=== PATIENT | female | born 2000 | race Caucasian/White ===

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

== ENCOUNTER 2023-07-04 12:16 | Inpatient (IN) ==
[2023-07-04 13:22] LABS: Basophils # (auto) 0.03 K/uL (0.00-0.20); Basophils % (auto) 0.4 %; Eosinophils # (auto) 0.03 K/uL (0.00-0.50); Eosinophils % (auto) 0.4 %; Hematocrit (blood only) 25.5 % (37.0-47.0); Hemoglobin 8.2 g/dl (12.0-16.0); Immature Granulocytes # (auto) 0.09 K/uL (0.01-0.20); Immature Granulocytes % (auto) 1.1 %; Lymphocytes # (auto) 1.47 K/uL (1.20-3.40); Lymphocytes % (auto) 17.5 %; Mean Corpuscular Hemoglobin 22.9 pg (25.0-34.0); Mean Corpuscular Hgb Conc 32.2 g/dL (32.0-36.0); Mean Corpuscular Volume 71.2 fL (80.0-100.0); Mean Platelet Volume 9.4 fL (9.4-12.4); Monocytes # (auto) 0.39 K/uL (0.11-0.59); Monocytes % (auto) 4.6 %; Neutrophils # (auto) 6.39 K/uL (1.40-6.50); Platelet Count 290 K/uL (130-400); RDW Coefficient of Variation 15.4 % (11.5-14.5); Red Blood Count 3.58 M/uL (4.20-5.40)
[2023-07-04 13:35] LABS: Albumin Globulin Ratio 0.9 (0.9-2); Albumin Level 3.2 gm/dl (3.4-5.0); BUN Creatinine Ratio 14.3 (10-20); Bilirubin,Total 0.5 mg/dl (0.2-1.0); Calcium 8.8 mg/dl (8.6-10.3); Creatinine Clr Calc Pharmacy 108.4 ml/min; Est GFR (African American) 113.5 ml/min; Globulin 3.5 gm/dl (2.5-4.0); Potassium 3.7 mmol/L (3.5-5.1); Total Protein 6.7 gm/dl (6.0-8.3)
[2023-07-04] MEDS ORDERED: OXYTOCIN 30 UNITS/NSS 30 UNITS/500 ML BAG IV PRN ×3 (13:41→16:49)
[2023-07-04] MEDS ORDERED: LIDOCAINE 1% LOCAL 20 ML VIAL INFIL PRN (13:41)
[2023-07-04 13:48] LABS: Amphetamines+Metham, Urine Pos (Neg); Barbiturates, Urine Neg (Neg); Benzodiazepine, Urine Neg (Neg); Cocaine, Urine Neg (Neg); MDMA (Ecstacy), Urine Pos (Neg); Marijuana, Urine Pos (Neg); Methadone, Urine Neg (Neg); Opiate, Urine Neg (Neg); Phencyclidine, Urine Neg (Neg)
[2023-07-04] MEDS: LACTATED RINGER'S 1,000 ML IV PRN ×2 (13:49→14:50)
--- NOTE | 2023-07-04 13:51 | History & Physical Report ---
Date of Service July 04, 2023 Assessment & Plan (1) 38 weeks gestation of : Plan: Admit, routine labs Start oxytocin for augmentation Epidural if patient request Anticipate spontaneous vaginal delivery (2) Limited care in third trimester: Plan: Patient had transportation issues this , is aware that CYS will be informed (3) Rh negative status during in third trimester: Plan: Did not get RhoGAM this Plan to give if indicated (4) Marijuana use during : Plan: States she has a medical card, is aware that urine tox was obtained Will is aware that case management and CYS will be informed (5) Asthma, moderate persistent: Plan: Will order inhaler if patient is in need of 1 History of Present Illness Chief Complaint: LOF at 1AM Primary Care Provider: NO PCP Patient is a 23-year-old -0-0-1 at 38 weeks and 5 days dated by 7-week ultrasound, who presents to labor and delivery for spontaneous rupture of membranes at approximately 1 AM. Notes ongoing discharge. Now having more regular contractions. Joined in the room with a friend and father of the baby. Patient was agreeable to have him stepped out of the room for the remainder of the history taking and exam. Patient only had 1 visit this . Patient states she was planning for home , and had changed her mind approximately 1 month ago. She denies any history of abuse, feels safe at home, denies any sex trafficking or concerns for this . Denies any headache, blurry vision, right upper quadrant or epigastric pain. Otherwise feeling well Patient has not had a GBS, RhoGAM in or 1 hour glucose test. Initial OB labs were all normal GBS was negative in 2018 Allergies Allergy/AdvReac Type Severity Reaction Status Date / Time amoxicillin Allergy Severe ANAPHYLAXIS Verified 07/04/23 12:40 Bactrim Allergy Severe ANAPHYLAXIS Verified 12/10/17 01:47 sulfamethoxazole [Bactrim] Allergy Severe ANAPHYLAXIS Verified 07/04/23 12:40 trimethoprim [Bactrim] Allergy Severe ANAPHYLAXIS Verified 07/04/23 12:40 vancomycin Allergy Severe ANAPHYLAXIS Verified 07/04/23 12:40 Home Medications Medication Instructions Recorded Confirmed Type albuterol sulfate 90 mcg/actuation 1 inh inhalation QID PRN Shortness 03/11/21 07/04/23 History aerosol inhaler Of Breath ferrous sulfate 325 mg (65 mg 1 mg PO DAILY 07/04/23 07/04/23 History iron) tablet vits no.124-ferrous fum 1 tab PO DAILY 07/04/23 07/04/23 History 27 mg iron-folic acid 800 mcg tablet ( Vitamin) Patient History Medical History Polyhydramnios depression Seasonal allergies Family History Other Family history non-contributory Social History Smoking Status: Current every day smoker Tobacco Type: Cigarettes Cigarettes Per Day: 2; Hx Alcohol Use: No Hx Substance Use: No Preferred Language: Arabic Communication Ability: Effective 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 Denies any history of HSV. Notes history of seropositive HSV 1 and epic records Review of Systems All systems reviewed & are unremarkable except as noted in HPI & below Physical Exam Constitutional: WD/WN, vitals as above Respiratory: normal respiratory effort, lungs clear to auscultation Cardiovascular: RRR, no murmur, no edema Gastrointestinal (Abdomen): normal bowel sounds, soft, nontender, no hepatosplenomegaly Gravid, EFW 3500 Genitourinary: Sterile speculum exam: No lesions seen Vagina: Small amount of scant thin meconium, positive Valsalva, positive nitrazine Gonorrhea and Chlamydia swab obtained GBS obtained Cervix: 4/80/-2 Cephalic presentation Results & Data Vital Signs (Past 12 Hours) Vital Signs Temp Pulse Resp BP 07/04/23 12:46 36.8 C 18 07/04/23 12:23 73 120/67 Monitoring External Monitor heart tracing: Baseline 125-130, moderate variability, positive accelerations no decelerations, category 1 tracing Tocodynamometer Irregular contractions (5) Asthma, moderate persistent Asthma complication type: uncomplicated Qualified Code(s): J45.40 - Moderate persistent asthma, uncomplicated
[2023-07-04] MEDS ORDERED: fentaNYL citrate PF 100 MCG/2 ML VIAL ONE (13:57)
[2023-07-04] MEDS ORDERED: fentANYL 2 MCG/ML BUPIVacaine 0.125%-NSS 100ML BAG ONE (13:57)
[2023-07-04] MEDS ORDERED: BUPIVACAINE 0.25% PF 30 ML VIAL ONE (13:57)
[2023-07-04] MEDS ORDERED: ePHEDrine sulfate 50 MG/ML AMP ONE (13:57)
[2023-07-04] MEDS ORDERED: LIDOCAINE 2%/EPINEPHRINE 1:200,000 20 ML PF ONE (13:57)
[2023-07-04] MEDS ORDERED: SODIUM CHLORIDE 0.9% PF INJ 10 ML VIAL ONE (13:57)
--- NOTE | 2023-07-04 14:20 | Anesthesiology Consultation ---
Date of Service July 04, 2023 Assessment & Plan Chart Review Chart Review: Acceptable Risk for Labor Epidural Consults Requested none History Height/Weight Height: 5 ft 3 in Weight: 86.183 kg Allergies Allergy/AdvReac Type Severity Reaction Status Date / Time amoxicillin Allergy Severe ANAPHYLAXIS Verified 07/04/23 12:40 Bactrim Allergy Severe ANAPHYLAXIS Verified 12/10/17 01:47 sulfamethoxazole [Bactrim] Allergy Severe ANAPHYLAXIS Verified 07/04/23 12:40 trimethoprim [Bactrim] Allergy Severe ANAPHYLAXIS Verified 07/04/23 12:40 vancomycin Allergy Severe ANAPHYLAXIS Verified 07/04/23 12:40 Medications Home Medications Medication Instructions Recorded Confirmed Last Taken albuterol sulfate 90 mcg/actuation 1 inh inhalation QID PRN Shortness 03/11/21 07/04/23 Unknown aerosol inhaler Of Breath ferrous sulfate 325 mg (65 mg 1 mg PO DAILY 07/04/23 07/04/23 07/03/23 iron) tablet vits no.124-ferrous fum 1 tab PO DAILY 07/04/23 07/04/23 07/03/23 27 mg iron-folic acid 800 mcg tablet ( Vitamin) Active Medications Generic Name Dose Route Start Last Admin Trade Name Freq PRN Reason Stop Dose Admin Lactated Ringer's 1,000 mls @ 125 mls/hr 07/04/23 13:41 07/04/23 13:49 Lr IV 07/06/23 13:40 999 mls/hr .Q8H PRN Administration L&D Protocol Protocol Past Medical History Medical History Polyhydramnios depression Seasonal allergies Past Family History Family History Other Family history non-contributory Social History Smoking Status: Current every day smoker Smoking cigarettes per day: 2 Hx Alcohol Use: No Hx Substance Use: No substance use type: marijuana Physical Exam Vital Signs Last Vital Signs Temp 36.8 C 07/04/23 12:46 Pulse 83 07/04/23 14:15 Resp 18 07/04/23 12:46 BP 123/88 07/04/23 14:14 Pulse Ox 100 07/04/23 14:15 Constitutional WD/WN, vitals as above Respiratory normal respiratory effort, lungs clear to auscultation Cardiovascular RRR, no murmur, no edema Gastrointestinal (Abdomen) normal bowel sounds, soft, nontender, no hepatosplenomegaly Testing Laboratory Results 07/04/23 12:49 07/04/23 12:49 Blood Type A Negative 07/04/23 12:49 Antibody Screen NEGATIVE 07/04/23 12:49
[2023-07-04] MEDS ORDERED: fentaNYL citrate PF 100 MCG/2 ML VIAL EPI STA (14:23)
[2023-07-04] MEDS ORDERED: NALBUPHINE HCL 5 MG in SYRINGE 0 ML IV PRN (14:23)
[2023-07-04] MEDS ORDERED: diphenhydrAMINE 50 MG/ML VIAL IV PRN (14:23)
[2023-07-04] MEDS ORDERED: fentaNYL citrate PF 100 MCG/2 ML VIAL EPI PRN (14:23)
[2023-07-04] MEDS ORDERED: SODIUM CHLORIDE 0.9% PF INJ 10 ML VIAL EPI STA (14:23)
[2023-07-04] MEDS ORDERED: NALOXONE HCL 0.4 MG/1 ML VIAL/CARP IV PRN (14:23)
[2023-07-04] MEDS ORDERED: ePHEDrine sulfate 50 MG/ML AMP IV PRN (14:23)
[2023-07-04] MEDS ORDERED: fentANYL 2 MCG/ML BUPIVacaine 0.125%-NSS 100ML BAG EPI PRN (14:23)
[2023-07-04] MEDS ORDERED: SODIUM CHLORIDE 0.9% PF INJ 10 ML VIAL EPI PRN (14:23)
[2023-07-04] MEDS ORDERED: BUPIVACAINE 0.25% PF 30 ML VIAL EPI PRN (14:23)
[2023-07-04] MEDS ORDERED: LIDOCAINE 2% MPF LOCAL 5 ML VIAL EPI PRN (14:23)
[2023-07-04] MEDS ORDERED: ROPIVACAINE 0.5% PF 5 MG/ML 20 ML VIAL EPI PRN (14:23)
[2023-07-04] MEDS ORDERED: NALOXONE HCL 1 MG in SODIUM CHLORIDE 0.9% 1,000 ML IV PRN (14:23)
[2023-07-04] MEDS ORDERED: BUPIVACAINE 0.25% PF 30 ML VIAL EPI STA (14:23)
[2023-07-04] MEDS ORDERED: LIDOCAINE 2%/EPINEPHRINE 1:200,000 20 ML PF EPI STA (14:23)
[2023-07-04] MEDS ORDERED: SODIUM CHLORIDE 0.9% 250 ML IV PRN (15:50)
[2023-07-04] MEDS ORDERED: bisacodyL 10 MG SUPP PR PRN (16:49)
[2023-07-04] MEDS ORDERED: DIPHTHER/TETAN/PERTUS Vaccine (Tdap, Adol/Adult) 0.5mL IM ONE (16:49)
[2023-07-04] MEDS ORDERED: BENZOCAINE 20% SPRY 85 APPLN/85 GM CAN EXT PRN (16:49)
[2023-07-04] MEDS ORDERED: HYDROCORTISONE ACETATE 25 MG SUPP PR PRN (16:49)
[2023-07-04] MEDS ORDERED: ACETAMINOPHEN 325 MG TAB PO PRN (16:49)
--- NOTE | 2023-07-04 16:54 | Delivery Summary ---
Vaginal Delivery Summary Date of Service July 04, 2023 Vaginal Delivery Summary Delivery Note Labor Course: Patient noted to be 4 cm on admission and reicved epidural. Progressed to 6cm, then 9 cm and complete without augmentation. Noted +UDS for meth, marijuana and ecstasy. Delivery Summary: Patient was placed in the dorsal lithotomy position. She was prepped and draped in the usual sterile fashion. Upon maternal pushing the head was delivered atraumatically followed by the anterior shoulders, posterior shoulders then the remainder of the infants body. Thick meconium noted and nuchal x2 unwrapped after delivery of infant. The was immediately placed on mother's abdomen, dried and stimulated. Delayed cord clamping for 60 seconds was performed. The infants mouth and nose were bulb suctioned by nursing staff. A male was delivered at 1640, weight pending with APGARS of 8 at 1 minute and 9 at 5 minutes. The infant was handed off to the awaiting nursing staff. Cord blood gases were not obtained. The placenta delivered intact with three vessel cord at 1644. Placenta was sent to pathology. Thirty units of Pitocin were added to the IV fluid and allowed to run freely. Uterine massage was performed until uterus was deemed firm. Upon inspection of the perineum, vagina and cervix were intact. Upon re-inspection the patient was hemostatic. Uterus again massaged and found to be firm. Needle and sponge counts were correct. Patient updated at bedside about positive Urine tox screen and need for confirmatory testing Patient was stable and allowed to recover in L&D room. Infant was stable and remained in room with mother in the labor and delivery unit. EBL 300mls
--- NOTE | 2023-07-04 17:07 | Anesthesia Procedure Note ---
Date of Service July 04, 2023 Anesthesia Post Epidural Note Vital Signs Vital Signs: Temp Pulse Resp BP Pulse Ox 36.8 C 69 18 114/65 99 07/04/23 12:46 07/04/23 17:01 07/04/23 12:46 07/04/23 17:01 07/04/23 16:46 Pain Intensity Abdomen: Pain Intensity: 8 Notes Mental Status: alert / awake / arousable and participated in evaluation Nausea / Vomiting: adequately controlled Pain: adequately controlled Airway Patency, RR, SpO2: stable & adequate BP & HR: stable & adequate Hydration State: stable & adequate Neuraxial Anesthesia: was administered and sensory block is resolving Anesthetic Complications: no major complications apparent and Pt Satisfied with anesthetic care Epidural: Removed without complications and With tip intact
--- OUTSIDE RECORDS SUMMARY | 2023-07-04 19:53 | External Medical Summary | Summary of Care ---
Author Name Unknown Organization [facility] Address [address] [place] [address] Phone [phone] Care Team Providers Care Model Maker Plastic Name Role Phone Armida Hernandez MD Primary Care Prov ider Encounter Details Date Type Department Care Team (Late st Contact Info) Description 04/09/2023 Orders Only Outcomes Research Department [address] [place], [place] [id number] Trinity Engle CHRA MyCode Research Other*[id number] Allergies Active Allergy Reactions Criticality Noted Date Comments Amoxicillin 04/10/2017 Sulfamethoxazole-Trimethoprim Edema Other,Hives 08/08/2016 Vancomycin Edema face/lips/tongue High 08/08/2016 documented as of this encounter (statuses as of 04/09/2023) Medications Medication Sig Dispensed Refills Start Date End Date Status Plus 27-1 MG Oral TabletIndications:Enc ounter for supervision of other normal , unspecified trimester Take 1 Tablet by mouth in the morning. 100 Tablet 3 11/30/2022 Active Iron-Vitamin C 65-125 MG Oral Tablet (Vitron C) Take 1 Tablet by mouth in the morning. 90 Tablet 3 12/03/2022 Active documented as of this encounter (statuses as of 04/09/2023) Active Problems Problem Noted Date Diagnosed Date Medical marijuana use 11/30/2022 Overview: Has medical marijuana card Raynaud's disease without gangrene 07/30/2018 Bilateral carpal tunnel syndrome 06/04/2018 Tobacco use disorder 02/19/2018 Rh negative status during 04/24/2017 INFORMATION 04/10/2017 Overview: Patient received flu vaccine. 04/10/2017 Amirah Esparza RN Rhophylac given at today's visit, 04/24/17, kmb Asthma, moderate persistent 01/04/2011 Other allergic rhinitis 04/23/2006 Overview: ICD-10 update of inactive term documented as of this encounter (statuses as of 04/09/2023) Resolved Problems Problem Noted Date Diagnosed Date Resolved Date Depression, 06/04/201807/30 Iron deficiency anemia 03/25/201807/30 Single liveborn, born in [facility], delivered by vaginal delivery 07/12/2017 02/19/2018 Polyhydramnios 07/12/2017 02/19/2018 Hx of chlamydia infection 07/12/2017 Tobacco smoking complicating 07/12/2017 11/30/2022 Overview: Smoking 1-2 cigarettes/day at [facility], down from about 1ppd. First-degree perineal lacera tion during delivery 07/12/2017 02/19/2018 (normal spontaneous vaginal delivery) 07/12/2017 02/19/2018 Antepartum anemia complicating 05/01/2017 02/19/2018 Supervision of normal first 04/10/2017 02/19/2018 Overview: Transfer of care at 27weeks from [facility]. Awaiting outside records 06/05/2017 Tdap Vaccine administered per clinic protocol. Pt given VIS(vaccine information sheet) Noelle Leigh RN Problem Action Taken Date entered Entered by Date resolved Unplanned 1st Offer Nurse [facility] 04/24/17 Antoinette Capellan RN 04/24/17 Nutrition Pt is attending [facility] 04/24/2017 Antoinette Capellan RN 04/24/17 Problem Action Taken Date entered Entered by Date resolved Current needs or questions Patient denies having any current needs or questions 05/15/2017 Vaishnavi Reid RN 05/15/2017 Problem Action Taken Date entered Entered by Date resolved Current needs or questions Patient denies having any current needs or questions 05/29/2017 Vaishnavi Reid RN 05/29/2017 Problem Action Taken Date entered Entered by Date resolved Labor education Reviewed signs and symptoms of labor and danger signs 06/05/2017 Noelle Leigh RN 06/05/2017 Problem Action Taken Date entered Entered by Date resolved Current needs or questions Patient denies having any current needs or questions 06/13/2017 Antoinette Capellan RN 06/13/17 Problem Action Taken Date entered Entered by Date resolved Labor education Reviewed signs and symptoms of labor and danger signs 06/19/2017 Antoinette Capellan RN 06/19/17 Problem Action Taken Date entered Entered by Date resolved Unsure of what to put in her bag discussed 06/26/2017 Vaishnavi Reid RN 06/26/2017 Problem Action Taken Date entered Entered by Date resolved Current needs or questions Patient denies having any current needs or questions 07/03/2017 Antoinette Capellan RN 07/03/17 Problem Action Taken Date entered Entered by Date resolved induction Discussed 07/10/2017 Vaishnavi Reid RN 07/10/2017 Constipation 03/08/2016 02/19/2018 Chlamydia infection 03/07/2016 02/20/20 18 Asthma with severity to be determined 12/08/2009 01/04/2011 Overview: Per Asthma Taxonomy ICD-10 update of inactive term EXTRINSIC ASTHMA, UNSPEC 04/23/2006 documented as of this encounter (statuses as of 04/09/2023) Immunizations Name Administration Dates Next Due HPV Vaccine, 9-Valent 11/04/2017,08/22/2016,01/2016 Meningococcal Conjugate Vacc ine (Menactra/Menveo) 02/23/2016,02/11/2012 SEASONAL INFLUENZA, PF, 6 M & Above, IM , (FLULAVAL or FLUZONE) 02/19/2018,04/10/2017 Seasonal Influenza Intranasal 04/23/2006 TDAP (age 10 and older)(Boostrix) 06/05/2017, Varicella Vaccine (Chicken Pox) 08/31/2008 documented as of this encounter Social History Tobacco Use Types Packs/Day Years Used Date Smoking Tobacco: Every Day Cigarettes 0.3 3 Smokeless Tobacco: Never Comments:1-2 cigarettes/day Alcohol Use Standard Drinks/Week Comments Not Currently 0 (1 standard drink = 0.6 oz pur e alcohol) Hunger Vital Sign Answer Date Recorded Within the past 12 months, y ou worried that your food would run out before you got the money to buy more. Never true 11/18/19 23 Within the past 12 months, t he food you bought just didn't last and you didn't have money to get more. Never true 11/17/2022 [place] Depression Scale Answer Date Recorded [place] Depression Scale Total Never 11/30/2022 The thought of harming myself has occurred to me . 0 11/30/2022 Sex and Gender Information Value Date Recorded Sex Assigned at Female 11/17/2022 3:29 PM EDT Gender Identity Female 11/17/2022 3:29 PM EDT Sexual Orientation Straight 11/17/2022 3: 29 PM EDT Job Start Date Occupation Industry Not on file Not on file Not on file documented as of this encounter Plan of Treatment Scheduled Orders Name Type Priority Associated Diagnoses Orde r Schedule MYCODE INITIAL ADULT Lab Routine MyCode Research Other*[id number] Expected: 04/09/2023 (Approximate), Expires: 04/28/2024 Health Maintenance Due Date Last Done Comments DISCUSS TOBACCO CESSATION (R EFER TO SMARTSET #[id number]) 2000 COVID-19 Vaccine (#1) 2000 Pneumococcal Vaccine: Pediat rics (0 to 5 Years) and At-Risk Patients (6 to 64 Years) (1 - PCV) 01/18/2006 Influenza Vaccine (FLU shot) (#1) 2023 02/19/2018, 02/19/2018, 04/10/2017, Additional history exists Depression Screening 02/26/2023 02/26/2022 Gonorrhea / Chlamydia Screen 12/01/2023, 02/26/2022, 07/22/2019, Additional history exists Pap Smear 02/26/2025 02/26/2022 DTaP,Tdap,and Td Vaccines (8 - Td or Tdap) 06/05/2027 06/05/2017, 02/11/2012, 07/04/2004, Additional history exists Hepatitis B Completed 08/04/2001, 06/2000, 2000 MENINGOCOCCAL (MENACTRA/MENVEO) Completed , 02/11/2012 GARDASIL-HPV IMMUNIZATION SERIES Completed 11/04/2017, 08/22/2016, 02/23/2016 documented as of this encounter Medical Devices Not on filedocumented as of this encounter Visit Diagnoses Diagnosis MyCode Research Other*[id number] documented in this encounter Advance Directives Latest Code Status on File Code Status Date Activated Date Inactivated Comments Full Code 07/11/2017 12:59 AM 07/13/2017 8:16 PM This order reflects the patients wishes and were consensually agreed upon. Care Teams Model Maker Plastic Relationship Specialty Start Date End Date Armida Hernandez MD [address] [place] [address] [place] [id number] PCP - General Family Medicine 07/23/18 documented as of this encounter
--- OUTSIDE RECORDS SUMMARY | 2023-07-04 19:53 | External Medical Summary | Summary of Care ---
Author Name Unknown Organization [facility] Address [address] [place] [address] Phone [phone] Care Team Providers Care Architectural Wood Model Maker Name Role Phone Armida Hernandez MD Primary Care Prov ider Reason for Visit * Reason Onset Date Comments No Show 01/01/2023 Encounter Details Date Type Department Care Team Description 01/01/2023 [facility] [address] [facility] [place] [address] Nayana Salomon CRNP [address] [facility] [place] [address] No Show Allergies Active Allergy Reactions Severity Noted Date Comments Amoxicillin 04/10/2017 Sulfamethoxazole-Trimethoprim Edema Other,Hives 08/08/2016 Vancomycin Edema face/lips/tongue High 08/08/2016 documented as of this encounter (statuses as of 01/31/2023) Medications Medication Sig Dispensed Refills Start Date [...] as of this encounter (statuses as of 01/31/2023) Active Problems Problem Noted Date Medical marijuana use 11/30/2022 Overview: Has medical marijuana card Cherylud's disease without gangrene 07/30 Bilateral carpal tunnel syndrome 018 Tobacco use disorder 02/19/2018 Rh negative status during 01/2017 INFORMATION 04/10/2017 Overview: Patient received flu vaccine. 04/10/2017 Amirah Esparza RN Rhophylac given at today's visit, 04/24/17, kmb Asthma, moderate persistent 01/04/2011 Other allergic rhinitis 04/23/2006 Overview: ICD-10 update of inactive term Estimated Date of Delivery Comme nts Yes 07/15/2023 Based on last me nstrual period of 10/08/2022 (Approximate) documented as of this encounter (statuses as of 01/31/2023) Resolved Problems Problem Noted Date Resolved Date Depression, 06/04/2018 9 Iron deficiency anemia 03/25/2018 9 Single liveborn, born in [facility], delivered by vaginal delivery 07/12/2017 02/19/2018 Polyhydramnios 07/12/2017 02/19/2018 Hx of chlamydia infection 07/12/20172017 Tobacco smoking complicating 8 11/30/2022 Overview: Smoking 1-2 cigarettes/day at NOB, down from about 1ppd. First-degree perineal laceration during delivery 07/12/2017 02/19/2018 (normal spontaneous vaginal delivery) 07/1202/19/2018 Antepartum anemia complicating 017 02/19/2018 Supervision of normal first 04/10/2017 02/19/2018 Overview: Transfer of care at 27weeks from [facility]. Awaiting outside records 06/05/2017 Tdap Vaccine administered per clinic protocol. Pt given VIS(vaccine information sheet) Noelle Leigh RN Problem Action Taken Date entered Entered by Date resolved Unplanned 1st Offer Nurse [facility] 04/24/17 Antoinette Capellan RN 04/24/17 Nutrition Pt is attending [facility] 04/24/2017 Antoinette Capellan RN 04/24/17 Problem [...] 07/10/2017 Constipation 03/08/2016 02/19/2018 Chlamydia infection 03/07/2016 02/19/2018 Asthma with severity to be determined 12/08/2009 01/04/2011 Overview: Per Asthma Taxonomy ICD-10 update of inactive term EXTRINSIC ASTHMA, UNSPEC 04/23/2006 010 documented as of this encounter (statuses as of 01/31/2023) Immunizations Name Administration Dates Next Due HPV Vaccine, 9-Valent 11/04/2017,08/22/2016,01/2016 Meningococcal Conjugate Vacc ine (Menactra/Menveo) 02/23/2016,02/11/2012 Seasonal Influenza Intranasal 04/23/2006 Seasonal Influenza, Quadriva lent, No Preserve, 6 Mons & Above, IM 02/19/2018,04/10/2017 TDAP (age 10 and older)(Boostrix) 06/05/2017, Varicella Vaccine (Chicken Pox) 08/31/2008 documented as of this encounter Social History Tobacco Use Types Packs/Day Years Used Date Smoking Tobacco: Every Day Cigarettes 0.3 3 Smokeless Tobacco: Never Comments:1-2 cigarettes/day Alcohol Use Standard Drinks/Week Comments Not Currently 0 (1 standard drink = 0.6 oz pur e alcohol) Food Insecurity Answer Date Recorded Within the past 12 months, y ou worried that your food would run out before you got money to buy more. Never true 11/17/2022 Within the past 12 months, t he food you bought just didn't last and you didn't have money to get more. Never true 11/17/2022 Estimated Date of Delivery Comme nts Yes 07/15/2023 Based on last me nstrual period of 10/08/2022 (Approximate) Sex Assigned at Date Recorded Female 11/17/2022 3:29 PM E DT Job Start Date Occupation Industry Not on file Not on file Not on file documented as of this encounter Miscellaneous Notes * Telephone Encounter - STEPHANIE Melvin - 01/01/2023 10:44 AM EDT Pt no show for JOVAN, called, no answer, vm not set up. My G sent. documented in this encounter Plan of Treatment Upcoming Encounters Date Type Specialty Care Team Description 02/11/2023 Office Visit Gynecology Obstetrics Aime, RODGER Varner [address] [place] [address] Health Maintenance Due Date Last Done Comments DISCUSS TOBACCO CESSATION (R EFER TO SMARTSET #[id number]) 2000 COVID-19 Vaccine (#1) 2000 Pneumococcal Vaccine: Pediat rics (0 to 5 Years) and At-Risk Patients (6 to 64 Years) (1 - PCV) 01/18/2006 Influenza Vaccine (FLU shot) (#1) 2023 02/19/2018, 02/19/2018, 04/10/2017, Additional history exists Depression Screening, Annual for Pts 12 and Over 02/26/2023 02/26/2022 Gonorrhea / Chlamydia Screen 12/01/2023, 02/26/2022, 07/22/2019, Additional history exists Pap Smear 02/26/2025 02/26/2022 DTaP,Tdap,and Td Vaccines (8 - Td or Tdap) 06/05/2027 06/05/2017, 02/11/2012, 07/04/2004, Additional history exists Hepatitis B Completed 08/04/2001, 06/2000, 2000 MENINGOCOCCAL (MENACTRA/MENVEO) Completed 6, 02/11/2012 GARDASIL-HPV IMMUNIZATION SERIES Completed 11/04/2017, 08/22/2016, 02/23/2016 Hepatitis C Screening Completed 11/30/2022 , 11/30/2022, 11/30/2022 documented as of this encounter Medical Devices Not on filedocumented as of this encounter Advance Directives Latest Code Status on File Code Status Date Activated Date Inactivated Comments Full Code 07/11/2017 12:59 AM 07/13/2017 8:16 PM This order reflects the patients wishes and were consensually agreed upon. Care Teams Architectural Wood Model Maker Relationship Specialty Start Date End Date Armida Hernandez MD [address] [place] [address] [place] [id number] PCP - General Family Medicine 07/23/18 documented as of this encounter
--- OUTSIDE RECORDS SUMMARY | 2023-07-04 19:53 | External Medical Summary | Summary of Care ---
Author Name Unknown Organization [facility] Address [address] [place] [address] Phone [phone] Care Team Providers Care Cloth Trimmer Hand Name Role Phone Armida Hernandez MD Primary Care Prov ider Reason for Visit * Reason Onset Date Comments No Show 01/01/2023 Encounter Details Date Type Department Care Team Description 01/01/2023 [facility]phone [facility] [address] [facility] [place] [address] Nayana Salomon CRNP [address] [place] [address] No Show Allergies Active Allergy Reactions Severity Noted Date Comments Amoxicillin 04/10/2017 Sulfamethoxazole-Trimethoprim Edema Other,Hives 08/08/2016 Vancomycin Edema face/lips/tongue High 08/08/2016 documented as of this encounter (statuses as of 02/20/2023) Medications Medication Sig Dispensed Refills Start Date [...] as of this encounter (statuses as of 02/20/2023) Active Problems Problem Noted Date Medical marijuana [...] as of this encounter (statuses as of 02/20/2023) Resolved Problems Problem Noted Date Resolved Date Depression, 06/04/2018 9 Iron deficiency anemia 03/25/2018 9 Single liveborn, born in [facility], delivered by vaginal delivery 07/12/2017 02/19/2018 Polyhydramnios [...] Capellan RN 04/24/17 Nutrition Pt is attending [facility] 04/24/2017 Antoinette Capellan RN 04/24/17 Problem Action [...] as of this encounter (statuses as of 02/20/2023) Immunizations Name Administration Dates Next Due DTaP - Dipth/Tet/Acell Pertussis 005,07/02/2001,2000,05/21,2000 HIB 4 dose (Acthib) 2000,2000,1999 HPV Vaccine, 9-Valent 11/04/2017,08/22/2016,09/0 01/2016 Hepatitis B, 0-19 yrs 08/04/2001,2000,10/1999 IPV - Polio Virus Vaccine (Inact) 2004,07/02/2001,2000,03/21 MMR - Measles/Mumps/Rubella Vaccine 07/04/2004,0 07/02/2001 Meningococcal Conjugate Vacc ine (Menactra/Menveo) 02/23/2016,02/11/2012 Pneumococcal Conjugate Vacci ne, 7 Valent 2000,2000 Seasonal Influenza Intranasal 04/23/2006 Seasonal Influenza, PF, 6 mo ns & Above, IM , (Flulaval) 02/19/2018,04/10/2017 Seasonal Influenza, Split, I IV3, With Preserve, Inj 06/07/2005 TDAP (age 10 and older)(Boostrix) 06/05/2017, Varicella Vaccine (Chicken Pox) 08/31/2008,07/02 documented as of this encounter Social History [...] encounter Miscellaneous Notes * Telephone Encounter - Viri Black LPN - 02/20/2023 9:50 AM EDT Call to pt. No answer and VM not set up. MyG sent * Telephone Encounter - STEPHANIE Melvin - 01/01/2023 10:44 AM EDT Pt no show for JOVAN, called, no answer, vm not set up. My G sent. documented in this encounter Plan of Treatment Health Maintenance Due Date Last Done Comments DISCUSS TOBACCO CESSATION (R EFER TO SMARTSET #[id number]) 2000 COVID-19 Vaccine (#1) 2000 Pneumococcal Vaccine: [...] and were consensually agreed upon. Care Teams Cloth Trimmer Hand Relationship Specialty Start Date End Date Armida Hernandez MD [address] [place] [address] [place] [phone] PCP - General Family Medicine 07/23/18 documented as of this encounter
--- OUTSIDE RECORDS SUMMARY | 2023-07-04 19:53 | External Medical Summary | Summary of Care ---
Author Name Unknown Organization [facility] Address [address] [place] [address] Phone [phone] Care Team Providers Care Film Vault Supervisor Name Role Phone Armida Hernandez MD Primary Care Prov ider Reason for Visit * Reason Onset Date Comments No Show 01/01/2023 Encounter Details Date Type Department Care Team Description 01/01/2023 Telephone [facility] [address] [facility] [place] [address] Nayana Salomon CRNP [address] [place] [address] No Show Allergies Active Allergy Reactions Severity [...] anemia 03/25/2018 9 Single liveborn, born in [facility], delivered by vaginal delivery [...] Capellan RN 04/24/17 Nutrition Pt is attending [place] 04/24/2017 Antoinette Capellan RN 04/24/17 Problem Action [...] 4 dose (Acthib) 2000,2000,1999 HPV Vaccine, 9-Valent 11/04/2017,08/22/2016,090 01/2016 Hepatitis B, 0-19 yrs 08/04/2001,2000,10/1999 IPV [...] money to get more. Never true 11/17/2022 Sex Assigned at Date Recorded Female 11/17/2022 3:29 PM E DT Job Start Date Occupation Industry Not on file Not on file Not on file documented as of this encounter Miscellaneous Notes * Telephone Encounter - Viri Black LPN - 02/20/2023 3:58 PM EDT Letter sent. Episode closed * Telephone Encounter - Viri Black LPN [...] DISCUSS TOBACCO CESSATION (R EFER TO SMARTSET #1615) 2000 COVID-19 Vaccine (#1) 2000 Pneumococcal Vaccine: [...] and were consensually agreed upon. Care Teams Film Vault Supervisor Relationship Specialty Start Date End Date Armida Hernandez MD [address] [place] [address] [place] [id number] PCP - General Family Medicine 07/23/18 documented as of this encounter
[2023-07-04] MEDS: DOCUSATE SODIUM 100 MG CAP PO SCH (20:39)
[2023-07-04] MEDS: IBUPROFEN 600 MG TAB PO PRN (21:33)
[2023-07-05] MEDS: IBUPROFEN 600 MG TAB PO PRN ×2 (04:11→18:23)
[2023-07-05] MEDS ORDERED: IRON SUCROSE 200 MG in 0.9 % SODIUM CHLORIDE 100 ML IV ONE (06:00)
[2023-07-05 07:05] LABS: Hematocrit (blood only) 20.4 % (37.0-47.0); Hemoglobin 6.4 g/dl (12.0-16.0); Mean Corpuscular Hemoglobin 22.6 pg (25.0-34.0); Mean Corpuscular Hgb Conc 31.4 g/dL (32.0-36.0); Mean Corpuscular Volume 72.1 fL (80.0-100.0); Mean Platelet Volume 9.2 fL (9.4-12.4); Platelet Count 244 K/uL (130-400); RDW Coefficient of Variation 15.4 % (11.5-14.5); Red Blood Count 2.83 M/uL (4.20-5.40); White Blood Count 8.83 K/ul (4.8-10.8)
[2023-07-05] MEDS ORDERED: SODIUM CHLORIDE 0.9% 250 ML IV PRN (07:20)
[2023-07-05] MEDS ORDERED: diphenhydrAMINE Capsule 25 MG CAP PO PRN (07:22)
--- NOTE | 2023-07-05 07:39 | Obstetrical Progress Note ---
Date of Service July 05, 2023 Assessment & Plan Admission and Anticipated Discharge Date Admission Date: July 04, 2023 Subjective Patient is seen and examined. She feels well, no complaints. Ambulating without dizziness Voiding without difficulty Tolerating regular diet with out N&V Bleeding is minimal No fever/ chills/ CP/ SOB/ N&V/ Leg pain Vital Signs Temp Pulse Resp BP Pulse Ox O2 Del Method 07/05/23 06:46 36.9 C 69 18 101/65 98 Room Air 07/05/23 06:30 36.7 C 66 16 99/62 L 98 Room Air 07/05/23 03:58 36.8 C 81 18 113/74 100 Room Air 07/04/23 23:21 36.8 C 79 16 109/69 99 Room Air 07/04/23 21:00 36.8 C 83 18 100 Room Air Lab Results 07/04/23 07/04/23 07/04/23 Range/Units 12:20 12:49 16:03 WBC 8.40 (4.8-10.8) K/ul RBC 3.58 L (4.20-5.40) M/uL Hgb 8.2 L (12.0-16.0) g/dl Hct 25.5 L (37.0-47.0) % MCV 71.2 L (80.0-100.0) fL MCH 22.9 L (25.0-34.0) pg MCHC 32.2 (32.0-36.0) g/dL RDW Std Deviation 39.0 (36.4-46.3) fL RDW Coeff of Mikel 15.4 H (11.5-14.5) % Plt Count 290 (130-400) K/uL MPV 9.4 (9.4-12.4) fL Immature Gran % (Auto) 1.1 % Neut % (Auto) 76.0 % Lymph % (Auto) 17.5 % [place] % (Auto) 4.6 % Eos % (Auto) 0.4 % Baso % (Auto) 0.4 % Neut # (Auto) 6.39 (1.40-6.50) K/uL Lymph # (Auto) 1.47 (1.20-3.40) K/uL [place] # (Auto) 0.39 (0.11-0.59) K/uL Eos # (Auto) 0.03 (0.00-0.50) K/uL Baso # (Auto) 0.03 (0.00-0.20) K/uL Immature Gran # (Auto) 0.09 (0.01-0.20) K/uL Sodium 134 L (136-145) mmol/L Potassium 3.7 (3.5-5.1) mmol/L Chloride 106 (98-107) mmol/L Carbon Dioxide 20 L (21-32) mmol/L Anion Gap 8 (3-11) BUN 12 (6-23) mg/dl Creatinine 0.84 (0.6-1.2) mg/dl Est Cr Clr Drug Dosing 108.4 ml/min Est GFR ( Amer) 113.5 ml/min Est GFR (Non-Af Amer) 98.0 ml/min BUN/Creatinine Ratio 14.3 (10-20) Glucose 87 (70-99(Fasting)) mg/dl POC Glucose 83 (70-99) mg/dl Calcium 8.8 (8.6-10.3) mg/dl Total Bilirubin 0.5 (0.2-1.0) mg/dl AST 19 (13-39) U/L ALT 11 (7-52) U/L Alkaline Phosphatase 186 H (34-104) U/L Total Protein 6.7 (6.0-8.3) gm/dl Albumin 3.2 L (3.4-5.0) gm/dl Globulin 3.5 (2.5-4.0) gm/dl Albumin/Globulin Ratio 0.9 (0.9-2) Urine Opiates Screen Neg (Neg) Ur Methadone, Qual Neg (Neg) Urine Barbiturates Neg (Neg) Ur Phencyclidine (PCP) Neg (Neg) U Amphetamin/Meth Scrn Pos H (Neg) MDMA (Ecstasy) Screen Pos H (Neg) U Benzodiazepines Scrn Neg (Neg) Ur Cocaine Metabolite Neg (Neg) U Marijuana (THC) Screen Pos H (Neg) RPR Nonreactive (Nonreactive) Blood Type A Negative Antibody Screen NEGATIVE Crossmatch 07/05/23 Range/Units 06:22 WBC 8.83 (4.8-10.8) K/ul RBC 2.83 L (4.20-5.40) M/uL Hgb 6.4 L* (12.0-16.0) g/dl Hct 20.4 L* (37.0-47.0) % MCV 72.1 L (80.0-100.0) fL MCH 22.6 L (25.0-34.0) pg MCHC 31.4 L (32.0-36.0) g/dL RDW Std Deviation 40.0 (36.4-46.3) fL RDW Coeff of Mikel 15.4 H (11.5-14.5) % Plt Count 244 (130-400) K/uL MPV 9.2 L (9.4-12.4) fL Immature Gran % (Auto) % Neut % (Auto) % Lymph % (Auto) % [place] % (Auto) % Eos % (Auto) % Baso % (Auto) % Neut # (Auto) (1.40-6.50) K/uL Lymph # (Auto) (1.20-3.40) K/uL [place] # (Auto) (0.11-0.59) K/uL Eos # (Auto) (0.00-0.50) K/uL Baso # (Auto) (0.00-0.20) K/uL Immature Gran # (Auto) (0.01-0.20) K/uL Sodium (136-145) mmol/L Potassium (3.5-5.1) mmol/L Chloride (98-107) mmol/L Carbon Dioxide (21-32) mmol/L Anion Gap (3-11) BUN (6-23) mg/dl Creatinine (0.6-1.2) mg/dl Est Cr Clr Drug Dosing ml/min Est GFR ( Amer) ml/min Est GFR (Non-Af Amer) ml/min BUN/Creatinine Ratio (10-20) Glucose (70-99(Fasting)) mg/dl POC Glucose (70-99) mg/dl Calcium (8.6-10.3) mg/dl Total Bilirubin (0.2-1.0) mg/dl AST (13-39) U/L ALT (7-52) U/L Alkaline Phosphatase (34-104) U/L Total Protein (6.0-8.3) gm/dl Albumin (3.4-5.0) gm/dl Globulin (2.5-4.0) gm/dl Albumin/Globulin Ratio (0.9-2) Urine Opiates Screen (Neg) Ur Methadone, Qual (Neg) Urine Barbiturates (Neg) Ur Phencyclidine (PCP) (Neg) U Amphetamin/Meth Scrn (Neg) MDMA (Ecstasy) Screen (Neg) U Benzodiazepines Scrn (Neg) Ur Cocaine Metabolite (Neg) U Marijuana (THC) Screen (Neg) RPR (Nonreactive) Blood Type Antibody Screen Cancelled Crossmatch See Detail PE: General: Alert, orientedx3, NAD, pale Abd: soft, NT, fundus firm, below Umbilicus Perineum intact, Lochia rubra minimal Ext; NT, no edema AP: 23 yo s/p , ppd# 1 VSS Afebrile doing well Anemic, Hb of 6.4 Discussed he risks and benefits of blood transfusion and she accepted and signed an informed consent. Continue routine care All questions were answered Results & Data Vital Signs (Past 12 Hours) Vital Signs Temp Pulse Resp BP Pulse Ox O2 Del Method 07/05/23 06:46 36.9 C 69 18 101/65 98 Room Air 07/05/23 06:30 36.7 C 66 16 99/62 L 98 Room Air 07/05/23 03:58 36.8 C 81 18 113/74 100 Room Air 07/04/23 23:21 36.8 C 79 16 109/69 99 Room Air 07/04/23 21:00 36.8 C 83 18 100 Room Air
[2023-07-05] MEDS: DOCUSATE SODIUM 100 MG CAP PO SCH ×2 (08:14→20:38)
[2023-07-05] MEDS: PRENATAL VITAMIN 1 TAB PO SCH (08:14)
[2023-07-05] MEDS: FERROUS SULFATE 325 MG TAB PO SCH ×2 (08:14→20:38)
[2023-07-05 15:39] LABS: Hematocrit (blood only) 25.9 % (37.0-47.0); Hemoglobin 8.5 g/dl (12.0-16.0)
[2023-07-05] MEDS ORDERED: bisacodyL 5 MG TABEC PO SCH (20:00)
--- NOTE | 2023-07-06 00:38 | Obstetrical Progress Note ---
Date of Service July 06, 2023 Assessment & Plan Admission and Anticipated Discharge Date Admission Date: July 04, 2023 Subjective Patient is seen and examined. She feels well, no complaints. Ambulating without dizziness Voiding without difficulty Tolerating regular diet with out N&V Bleeding is minimal No fever/ chills/ CP/ SOB/ N&V/ Leg pain Breast feeding without problems She has received 2 units of PRBC, and feels better Vital Signs Temp Pulse Resp BP Pulse Ox O2 Del Method 07/05/23 20:20 36 C L 84 16 99/64 L 98 Room Air 07/05/23 14:39 36.7 C 80 16 110/72 Room Air Lab Results 07/04/23 07/04/23 07/04/23 Range/Units 12:20 12:49 16:03 WBC 8.40 (4.8-10.8) K/ul RBC 3.58 L (4.20-5.40) M/uL Hgb 8.2 L (12.0-16.0) g/dl Hct 25.5 L (37.0-47.0) % MCV 71.2 L (80.0-100.0) fL MCH 22.9 L (25.0-34.0) pg MCHC 32.2 (32.0-36.0) g/dL RDW Std Deviation 39.0 (36.4-46.3) fL RDW Coeff of Mikel 15.4 H (11.5-14.5) % Plt Count 290 (130-400) K/uL MPV 9.4 (9.4-12.4) fL Immature Gran % (Auto) 1.1 % Neut % (Auto) 76.0 % Lymph % (Auto) 17.5 % [place] % (Auto) 4.6 % Eos % (Auto) 0.4 % Baso % (Auto) 0.4 % Neut # (Auto) 6.39 (1.40-6.50) K/uL Lymph # (Auto) 1.47 (1.20-3.40) K/uL [place] # (Auto) 0.39 (0.11-0.59) K/uL Eos # (Auto) 0.03 (0.00-0.50) K/uL Baso # (Auto) 0.03 (0.00-0.20) K/uL Immature Gran # (Auto) 0.09 (0.01-0.20) K/uL Sodium 134 L (136-145) mmol/L Potassium 3.7 (3.5-5.1) mmol/L Chloride 106 (98-107) mmol/L Carbon Dioxide 20 L (21-32) mmol/L Anion Gap 8 (3-11) BUN 12 (6-23) mg/dl Creatinine 0.84 (0.6-1.2) mg/dl Est Cr Clr Drug Dosing 108.4 ml/min Est GFR ( Amer) 113.5 ml/min Est GFR (Non-Af Amer) 98.0 ml/min BUN/Creatinine Ratio 14.3 (10-20) Glucose 87 (70-99(Fasting)) mg/dl POC Glucose 83 (70-99) mg/dl Calcium 8.8 (8.6-10.3) mg/dl Total Bilirubin 0.5 (0.2-1.0) mg/dl AST 19 (13-39) U/L ALT 11 (7-52) U/L Alkaline Phosphatase 186 H (34-104) U/L Total Protein 6.7 (6.0-8.3) gm/dl Albumin 3.2 L (3.4-5.0) gm/dl Globulin 3.5 (2.5-4.0) gm/dl Albumin/Globulin Ratio 0.9 (0.9-2) Urine Opiates Screen Neg (Neg) Ur Methadone, Qual Neg (Neg) Urine Barbiturates Neg (Neg) Ur Phencyclidine (PCP) Neg (Neg) U Amphetamin/Meth Scrn Pos H (Neg) MDMA (Ecstasy) Screen Pos H (Neg) U Benzodiazepines Scrn Neg (Neg) Ur Cocaine Metabolite Neg (Neg) U Marijuana (THC) Screen Pos H (Neg) RPR Nonreactive (Nonreactive) Hepatitis C Ab (EIA) NON-REACTIVE (NON-REACTIVE) HIV (1&2) Ag & Ab Conf NON-REACTIVE (NON-REACTIVE) Blood Type A Negative Antibody Screen NEGATIVE Screen (Negative) Crossmatch See Detail 07/05/23 07/05/23 Range/Units 06:22 15:22 WBC 8.83 (4.8-10.8) K/ul RBC 2.83 L (4.20-5.40) M/uL Hgb 6.4 L* 8.5 L (12.0-16.0) g/dl Hct 20.4 L* 25.9 L (37.0-47.0) % MCV 72.1 L (80.0-100.0) fL MCH 22.6 L (25.0-34.0) pg MCHC 31.4 L (32.0-36.0) g/dL RDW Std Deviation 40.0 (36.4-46.3) fL RDW Coeff of Mikel 15.4 H (11.5-14.5) % Plt Count 244 (130-400) K/uL MPV 9.2 L (9.4-12.4) fL Immature Gran % (Auto) % Neut % (Auto) % Lymph % (Auto) % [place] % (Auto) % Eos % (Auto) % Baso % (Auto) % Neut # (Auto) (1.40-6.50) K/uL Lymph # (Auto) (1.20-3.40) K/uL [place] # (Auto) (0.11-0.59) K/uL Eos # (Auto) (0.00-0.50) K/uL Baso # (Auto) (0.00-0.20) K/uL Immature Gran # (Auto) (0.01-0.20) K/uL Sodium (136-145) mmol/L Potassium (3.5-5.1) mmol/L Chloride (98-107) mmol/L Carbon Dioxide (21-32) mmol/L Anion Gap (3-11) BUN (6-23) mg/dl Creatinine (0.6-1.2) mg/dl Est Cr Clr Drug Dosing ml/min Est GFR ( Amer) ml/min Est GFR (Non-Af Amer) ml/min BUN/Creatinine Ratio (10-20) Glucose (70-99(Fasting)) mg/dl POC Glucose (70-99) mg/dl Calcium (8.6-10.3) mg/dl Total Bilirubin (0.2-1.0) mg/dl AST (13-39) U/L ALT (7-52) U/L Alkaline Phosphatase (34-104) U/L Total Protein (6.0-8.3) gm/dl Albumin (3.4-5.0) gm/dl Globulin (2.5-4.0) gm/dl Albumin/Globulin Ratio (0.9-2) Urine Opiates Screen (Neg) Ur Methadone, Qual (Neg) Urine Barbiturates (Neg) Ur Phencyclidine (PCP) (Neg) U Amphetamin/Meth Scrn (Neg) MDMA (Ecstasy) Screen (Neg) U Benzodiazepines Scrn (Neg) Ur Cocaine Metabolite (Neg) U Marijuana (THC) Screen (Neg) RPR (Nonreactive) Hepatitis C Ab (EIA) (NON-REACTIVE) HIV (1&2) Ag & Ab Conf (NON-REACTIVE) Blood Type A Negative Antibody Screen Cancelled Screen Negative (Negative) Crossmatch See Detail PE: General: Alert, orientedx3, NAD Abd: soft, NT, fundus firm, below Umbilicus Perineum intact, Lochia rubra minimal Ext; NT, no edema AP: 23 yo s/p , ppd# 2 VSS Afebrile doing well s/p 2 units of PRBCC, Hb improved. Continue routine care All questions were answered D/C home/ nesting today , baby will be staying Results & Data Vital Signs (Past 12 Hours) Vital Signs Temp Pulse Resp BP Pulse Ox O2 Del Method 07/05/23 20:20 36 C L 84 16 99/64 L 98 Room Air 07/05/23 14:39 36.7 C 80 16 110/72 Room Air
[2023-07-06 08:20] LABS: Hematocrit (blood only) 25.2 % (37.0-47.0); Hemoglobin 8.3 g/dl (12.0-16.0)
[2023-07-06] MEDS: PRENATAL VITAMIN 1 TAB PO SCH (09:18)
[2023-07-06] MEDS: FERROUS SULFATE 325 MG TAB PO SCH (09:18)
[2023-07-06] MEDS: DOCUSATE SODIUM 100 MG CAP PO SCH (09:18)
[2023-07-06 12:32] LABS: Chlam trach RNA(Genit,Ureth,Ur Not Detected (NotDetected); GC(Neis gon)RNA(Genit,Ureth,Ur Not Detected (NotDetected)
[2023-07-06 12:47] LABS: Trichomonas vag RNA GenitalFem Not Detected (NotDetected)
[2023-07-09 16:57] LABS: Amphetamine Urine, Confirm 1410 ng/mL (<250); MDA negative; MDEA negative; MDMA (Ecstasy) Urine, Confirm negative; Marijuana Quant, GCMS Urine 64 ng/mL (<5); Methamphetamine, Ur Confirm 9402 ng/mL (<250)
--- NOTE | 2023-07-10 13:12 | Coding Query ---
ANEMIA To promote full compliance with coding requirements relating to patient care, physician participation is requested in all cases of automotive manufacturer uncertainty. Please assist us with the question(s) below: Coding Question(s): The record reflects the following clinical findings: Anemia is documented on the 07/05 Obstetric Progress Note. If these findings are indicative of anemia, please specify the known or suspected type by placing an "X" within the parenthesis (x). If other, please document type. Examples are: ( ) Acute blood loss anemia ( ) Acute Postoperative blood loss anemia ( ) Acute postoperative anemia due to dilutional fluids ( ) Chronic blood loss anemia ( ) Anemia of chronic disease ( ) Aplastic anemia ( ) Anemia due to renal disease ( ) Anemia in neoplastic disease ( ) Iron deficient anemia ( x) Anemia, unspecified or other ( ) Other: (please specify) anemia Thank you C[facility] Henning [facility]
== END 2023-07-06 12:34 | disposition home or self-care (01) | DRG 807 ==
LOC: OPB 12:16 → 4S1 12:18 → 4E2 20:00